=== PATIENT | male | born 2000 | race Caucasian/White ===

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

== ENCOUNTER 2018-04-25 07:43 | Emergency (ER) | payer OTHER ==
[~2018-04-25] VITALS: Ht 170.2 cm; Wt 65.8 kg
[~2018-04-25 07:43] MED LIST: IBUPROFEN600 M1 PO
[2018-04-25 07:58] VITALS: BP 132/64
[2018-04-25] MEDS ORDERED: BENZONATATE200 M1 PO (08:27)
[2018-04-25] MEDS ORDERED: AMOXICILLIN875 M1 PO (08:27)
--- NOTE | 2018-04-25 08:27 | ED INFLUENZA/URI COMPLAINT ---
History of Present Illness General Chief Complaint: Upper Respiratory Sx/Fever Stated Complaint: URI Source: patient Exam Limitations: no limitations Vital Signs & Intake/Output Vital Signs & Intake/Output Vital Signs Date Time Temp Pulse Resp B/P B/P Pulse O2 O2 Flow FiO2 Mean Ox Delivery Rate 04/25 0758 99.8 72 20 132/64 98 Room Air Allergies Coded Allergies: No Known Allergies (04/27/17) Reconcile Medications Amoxicillin 875 MG TABLET 1 TAB PO BID SINUSITIS Benzonatate 200 MG CAPSULE 1 CAP PO TIDPRN COUGH Ibuprofen 600 MG TABLET 1 TAB PO TID PRN pain with food Triage Note: PT C/O SINUS PAIN, CONGESTION, PRODUCTIVE COUGH X 4 DAYS Triage Nurses Notes Reviewed? yes Onset: Abrupt Duration: day(s):, constant Timing: recent history No Modifying Factors: none HPI: 17-year-old male comes into the emergency room with nasal congestion, runny nose , cough, mucus production yellow/green. He complains of facial pressure. Denies any ear pain. Denies any sore throat. Nothing seems to make the symptoms better. The medial and off for the past few days. Subjective fevers at home. ([place]) Past History Travel History Traveled to [place] past 21 day No Medical History Any Pertinent Medical History? none Neurological: NONE EENT: NONE Cardiovascular: NONE Respiratory: NONE Gastrointestinal: NONE Hepatic: NONE Renal: NONE Musculoskeletal: NONE Psychiatric: NONE Endocrine: NONE Blood Disorders: NONE Cancer(s): NONE SALES ENGAGEMENT MANAGER/Reproductive: NONE Surgical History Surgical History: none Psychosocial History What is your primary language [place] Island[place] Tobacco Use: Never used Family History Hx Contributory? No ([place]) Review of Systems Review of Systems Constitutional: Reports: see HPI. EENTM: Reports: see HPI. Respiratory: Reports: see HPI. Cardiovascular: Reports: no symptoms. GI: Reports: no symptoms. Genitourinary: Reports: no symptoms. Musculoskeletal: Reports: no symptoms. Skin: Reports: no symptoms. Neurological/Psychological: Reports: no symptoms. Hematologic/Endocrine: Reports: no symptoms. Immunologic/Allergic: Reports: no symptoms. All Other Systems: Reviewed and Negative ([place]) Physical Exam Physical Exam General Appearance: well developed/nourished, alert, awake Head: atraumatic Eyes: Bilateral: normal appearance. Ears, Nose, Throat: moist mucous membrane, hearing grossly normal, Tympanic normal, pharynx normal, nasal congestion Neck: normal inspection Respiratory: normal breath sounds, no respiratory distress Cardiovascular: regular rate/rhythm Extremities: normal inspection Neurologic/Psych: awake, alert, oriented x 3 Skin: intact Core Measures Sepsis Present: No Sepsis Focused Exam Completed? No ([place]) Progress Differential Diagnosis: influenza, pneumonia, pharyngitis, sinusitis Plan of Care: 04/25/2018 10:00:14 AM Patient clinically looks well. Patient is in no apparent distress. Patient is nontoxic-appearing. Symptoms are most consistent with sinusitis. Take medications as prescribed. Follow-up PCP as needed. Initial ED EKG: none ([place]) Departure Departure Disposition: HOME OR SELF CARE Condition: Stable Clinical Impression Primary Impression: Sinusitis Referrals: Adelina Billingsley MD (PCP/Family) Additional Instructions: Take amoxicillin and Tessalon Perles as prescribed. trim crew supervisor [id number] Mucinex D. Motrin/Tylenol. Drink plenty of fluids. Follow-up with press operator helper if not better in one week. Please go over all results of today's visit with your primary care doctor. Contact your primary care doctor to let them know you were here in the emergency room. There may be nonspecific findings which may not be related to your visit today here in the emergency room but may require further evaluation and chronic monitoring by your primary care doctor. If you had a laceration today the chance of foreign body always remains. You should follow-up with your primary care doctor for recheck in 3-5 days for a wound check. If you had an x-ray done there is a chance that a fracture could have been missed on initial read and you should follow-up with your primary care doctor for repeat x-rays if symptoms persist. If your blood pressure was elevated here in the emergency room please have rechecked by [facility] primary care doctor within the next 48. If you were prescribed a narcotic here in the emergency room or any type of controlled substances you're not allowed to drive while taking this medication or operate any type of heavy machinery. Narcotics can make you feel lightheaded dizziness nausea and can cause constipation. You may need to cook pickled meat a stool softener. Thank you for choosing [facility] emergency room. Please return to the emergency room immediately if you have any other concerns worsening of symptoms. Departure Forms: Customer Survey General Discharge Information Prescriptions: Current Visit Scripts Amoxicillin 1 TAB PO BID #20 TAB Benzonatate 1 CAP PO TIDPRN #30 CAP ([place]) PA/VEGETABLE LOADER MACHINE OPERATOR Co-Sign Statement Statement: ED Attending supervision documentation- [] I saw and evaluated the patient. I have also reviewed all the pertinent lab results and diagnostic results. I agree with the findings and the plan of care as documented in the PA's/VEGETABLE LOADER MACHINE OPERATOR's documentation. [x] I have reviewed the ED Record and agree with the PA's/VEGETABLE LOADER MACHINE OPERATOR's documentation. [] Additions or exceptions (if any) to the PAs/VEGETABLE LOADER MACHINE OPERATOR's note and plan are summarized below: [] (El Cowart DO)
== END 2018-04-25 08:31 ==
LOC: ERH 07:43
DX: J32.9 Chronic sinusitis, unspecified (principal)